=== PATIENT | male | born 1945 | race Hispanic/Latino ===

== ENCOUNTER 2024-06-24 14:30 | Emergency (ER) | payer MEDICARE ==
[~2024-06-24] VITALS: Ht 172.7 cm; Wt 96.6 kg
[~2024-06-24 14:30] MED LIST: AMLODIPINE BESYL5 MG PO; COREG12.5 MG PO; LIPITOR20 MG PO; LOSARTAN POTAS100 MG PO; METFORMIN HCL850 MG PO
[2024-06-24 15:00] VITALS: PULSE 68; RESP 16; TEMP 99.1; O2SAT 98
== END 2024-06-24 15:20 | disposition home or self-care (01) ==
LOC: ER 14:49
DX: Z46.6 Encounter for fitting and adjustment of urinary device (principal); R50.9 Fever, unspecified
CPT/HCPCS: 99282

== ENCOUNTER → 2025-02-02 | Day surgery (SDC) | payer MEDICARE ==
[2025-01-16 13:15] LABS: BASOPHILS % 0.3 % (0.0-1.0); EOSINOPHILS % 8.8 % (0.0-6.0); LYMPHOCYTES % 29.9 % (18.0-39.1); MONOCYTES % 7.2 % (4.4-11.3); NEUTROPHILS % 53.5 % (38.7-80.0); RED CELL DISTRIBUTION WIDTH 14.0 % (11.7-14.4)
[2025-01-16 13:44] LABS: EST GLOMERULAR FILTRATION RATE 66.0 ML/MIN (>=60)
[~2025-02-02] MED LIST changes: +ACETAMINOPHEN 1000 MG/100 ML 100 ML IV ONE; +BUPIVACAINE LIPOSOME/PF 266 MG/20 ML IJ ONE; +EPHEDRINE SULFATE INJ 50 MG/ML VIAL ONE; +FENTANYL CITRATE/PF 100MCG/2 ML INJ ONE; +LIDOCAINE HCL 2% LOCAL INJ 5 ML SDV VIAL INJ ONE; +ONDANSETRON HCL INJ 2MG/ML 2ML 2 MG/ML VIAL ONE; +PROPOFOL IV EMULSION 10 MG/ML 20 ML VIAL ONE; +SEVOFLURANE INHAL SOLN 250 ML PEN BTL ONE
[2025-02-02] MEDS: CEFTRIAXONE 1 GM VIAL ONE (06:03)
[2025-02-02] MEDS: LACTATED RINGER'S 1,000 ML ONE (06:03)
[2025-02-02 07:21] VITALS: TEMP 98.7
[2025-02-02 08:15] VITALS: BP 147/86; PULSE 65; RESP 16; O2SAT 96
== END | disposition home or self-care (01) ==
LOC: OR 05:22
PROVIDERS: ATTEND Urology
DX: N35.919 Unspecified urethral stricture, male, unspecified site (principal); Z43.5 Encounter for attention to cystostomy; N39.0 Urinary tract infection, site not specified; E11.9 Type 2 diabetes mellitus without complications; I10 Essential (primary) hypertension; E78.5 Hyperlipidemia, unspecified; H91.90 Unspecified hearing loss, unspecified ear; E66.9 Obesity, unspecified; Z01.810 Encounter for preprocedural cardiovascular examination; Z01.812 Encounter for preprocedural laboratory examination; Z79.84 Long term (current) use of oral hypoglycemic drugs; Z79.899 Other long term (current) drug therapy; Z87.891 Personal history of nicotine dependence
CPT/HCPCS: 36415 ×2; 51710; 74420; 80048; 82948; 85025; 93005; C1769; J0131; J0666; J0696; J2003; J2405; J2704; J3010; J7121